=== PATIENT | male | born 1945 | race Caucasian/White ===

== ENCOUNTER 2023-07-19 07:25 | Day surgery (SDC) | payer MEDICARE, OTHER, SELFPAY ==
[2023-07-19] VITALS (15 sets, daily range): BP systolic 107–121; BP diastolic 66–74; BMI 24.2
[2023-07-19] MEDS: NSS 250 ML IV (08:42)
[2023-07-19 09:41] LABS: ACT-LR - POC 247 Seconds (116-155)
[2023-07-19] MEDS: NSS 1000 IV (09:55)
--- NOTE | 2023-07-19 12:38 | ITS.CL.CATH ---
[facility] - Catheterization
Cardiac Catheterization
Procedure Report:
CARDIAC CATHETERIZATION REPORT
Date of Procedure: 07/19/2023
Referring: Emir Campoverde MD
Indication: Worsening exertional dyspnea with known mild CAD
HEMODYNAMIC DATA
AO: 106/65
LV: 106/17
LEFT VENTRICULOGRAPHY: Normal left ventricular wall motion with EF 64%
CORONARY ANGIOGRAPHY
Dominance: Right
Left Main: Normal
LAD: There is mild to moderate calcification of the proximal and mid LAD. There is a 20% mid LAD lesion distal to the takeoff of the second diagonal branch. There is a smooth 50% stenosis in the proximal segment of the distal LAD and 80% true
apical stenosis. The appearance of the LAD is unchanged compared with the prior study from May 2021
Circumflex: The circumflex has 50-60% mid stenosis proximal to the takeoff of the medium sized OM 2. OM1 is small. The circumflex terminates with a small OM 3.
RCA: Large dominant vessel with mild luminal irregularities
FloWire assessment: At the conclusion of the diagnostic study, we proceeded with FloWire assessment of the mid circumflex lesion. The lesion appeared angiographically similar to its appearance on the 2020 study. However, given his symptoms we felt
we should rule out flow-limiting disease. A Vivoxid flow wire was used through a JL 4 guide catheter. Heparin is used for anticoagulation. iFR results were: 0.95, 0.96, and 0.96. These are consistent with nonflow-limiting disease.
Closure Device: None-the procedure was performed via the right radial artery. The Jelani's test was normal prior to the procedure.
Radiation (mGy): 293
DAP (cm2.Gy): 26.6
Fluoroscopy time: 3.1 minutes
CONCLUSIONS
1: Normal left ventricular wall motion with EF 64%
2: Stable CAD not significantly changed compared with the prior study from 05/28/2021. The mid circumflex lesion is nonflow limiting by FloWire assessment
3. Continue medical therapy
Copy to: Emir Campoverde MD, Bill Payne MD, Elier Chaidez MD ([facility] [address] pulmonary department)
Reg Hernandez MD, [facility], [facility]
== END 2023-07-19 14:00 | disposition home or self-care (01) ==
LOC: CATH 07:25
PROVIDERS: ATTENDING PHYSICIAN Internal Medicine Cardiovascular Disease; FAMILY PHYSICIAN Family Medicine; OTHER PHYSICIAN Internal Medicine
DX: I25.10 Atherosclerotic heart disease of native coronary artery without angina pectoris (principal); R06.09 Other forms of dyspnea; I25.84 Coronary atherosclerosis due to calcified coronary lesion; Z79.01 Long term (current) use of anticoagulants
CPT/HCPCS: 85347; 93458; 93571; C1769; C1894

== ENCOUNTER → 2023-09-21 12:44 | Outpatient (REF) | payer MEDICARE, OTHER, SELFPAY | LOC: DHCBC MAIN 12:44 | PROVIDERS: ATTENDING PHYSICIAN Internal Medicine; FAMILY PHYSICIAN Family Medicine | DX: I47.29 Other ventricular tachycardia (principal) | CPT/HCPCS: 93306 ==

== ENCOUNTER → 2023-11-04 11:00 | Outpatient (REF) | payer MEDICARE, OTHER, SELFPAY | LOC: RAD 11:00 | PROVIDERS: ATTENDING PHYSICIAN Internal Medicine; FAMILY PHYSICIAN Family Medicine | DX: R91.8 Other nonspecific abnormal finding of lung field (principal) | CPT/HCPCS: 71250 ==

== ENCOUNTER → 2024-01-20 11:59 | Outpatient (REF) | payer MEDICARE, OTHER, SELFPAY ==
[2024-01-20 12:58] LABS: % Basophils 1.7 % (0-2); % Eosinophils 2.9 % (0-6); % Immature Granulocytes 0.5 % (0-0.5); % Lymphocytes 15.5 % (20.5-51.1); % Monocytes 15.5 % (1.7-9.3); % Neutrophils 63.9 % (42.2-75.2); Absolute Basophils 0.1 10^3/uL (0-0.2); Absolute Eosinophils 0.1 10^3/uL (0-0.7); Absolute Lymphocytes 0.6 10^3/uL (1.2-3.4); Absolute Monocytes 0.6 10^3/uL (0.1-0.6); Absolute Neutrophils 2.7 10^3/uL (1.4-6.5); Hematocrit 32.4 % (39.0-52.0); Hemoglobin 10.8 g/dL (13.0-18.0); Mean Corp Hgb Conc. 33.3 g/dL (33.0-37.0); Mean Corpuscular Hgb 28.4 pg (27.0-31.0); Mean Corpuscular Volume 85.3 fL (80.0-94.0); Mean Platelet Volume 10.1 fL (7.4-10.4); Nucleated Red Blood Cells % 0 % (-); Platelet Count 142 10^3/uL (130-400); Red Cell Dist. Width 16.6 % (11.5-14.5); White Blood Cell Count 4.1 10^3/uL (4.8-10.8)
[2024-01-20 13:33] LABS: Iron 109 ug/dl (49-181)
[2024-01-20 13:44] LABS: Percent Saturation 37 % (20-50); Total Iron Binding Capacity 293 ug/dl (261-462)
[2024-01-20 14:09] LABS: Ferritin 39.6 ng/ml (17.9-464.0)
[2024-01-20 14:40] LABS: Folate > 20.0 ng/ml (2.76-20); Vitamin B12 813 pg/ml (239-931)
== END ==
LOC: REG 11:59
PROVIDERS: ATTENDING PHYSICIAN Internal Medicine Hematology & Oncology; FAMILY PHYSICIAN Family Medicine
DX: D61.818 Other pancytopenia (principal); K21.9 Gastro-esophageal reflux disease without esophagitis; I48.91 Unspecified atrial fibrillation; D51.9 Vitamin B12 deficiency anemia, unspecified; D51.8 Other vitamin B12 deficiency anemias
CPT/HCPCS: 36415; 82607; 82728; 82746; 83540; 83550; 85025

== ENCOUNTER → 2024-02-22 15:11 | Outpatient (REF) | payer MEDICARE, OTHER, SELFPAY | LOC: RAD 15:11 | PROVIDERS: ATTENDING PHYSICIAN Internal Medicine; FAMILY PHYSICIAN Family Medicine | DX: J47.9 Bronchiectasis, uncomplicated (principal) | CPT/HCPCS: 71250 ==

== ENCOUNTER → 2024-04-06 12:08 | Outpatient (REF) | payer MEDICARE, OTHER, SELFPAY ==
[2024-04-06 20:17] LABS: PSA, Total - Screen 0.12 ng/ml (0.0-4.0)
== END ==
LOC: REG 12:08
PROVIDERS: ATTENDING PHYSICIAN Family Medicine
DX: R39.198 Other difficulties with micturition (principal); Z12.5 Encounter for screening for malignant neoplasm of prostate
CPT/HCPCS: 36415; G0103

== ENCOUNTER → 2024-07-24 14:08 | Outpatient (REF) | payer MEDICARE, OTHER, SELFPAY ==
[2024-07-24 16:52] LABS: Iron 123 ug/dl (49-181)
[2024-07-24 17:01] LABS: Percent Saturation 39 % (20-50); Total Iron Binding Capacity 312 ug/dl (261-462)
[2024-07-24 17:48] LABS: % Basophils 1.7 % (0-2); % Eosinophils 6.2 % (0-6); % Immature Granulocytes 0.3 % (0-0.5); % Lymphocytes 19.2 % (20.5-51.1); % Monocytes 16.1 % (1.7-9.3); % Neutrophils 56.5 % (42.2-75.2); Absolute Basophils 0.1 10^3/uL (0-0.2); Absolute Eosinophils 0.2 10^3/uL (0-0.7); Absolute Lymphocytes 0.7 10^3/uL (1.2-3.4); Absolute Monocytes 0.6 10^3/uL (0.1-0.6); Hematocrit 32.9 % (39.0-52.0); Hemoglobin 10.3 g/dL (13.0-18.0); Mean Corp Hgb Conc. 31.3 g/dL (33.0-37.0); Mean Corpuscular Hgb 27.5 pg (27.0-31.0); Mean Corpuscular Volume 87.7 fL (80.0-94.0); Nucleated Red Blood Cells % 0 % (-); Platelet Count 119 10^3/uL (130-400); Red Blood Cell Count 3.75 10^6/uL (4.70-6.10); Red Cell Dist. Width 16.1 % (11.5-14.5); White Blood Cell Count 3.5 10^3/uL (4.8-10.8)
[2024-07-24 17:59] LABS: Folate > 20.0 ng/ml (2.76-20); Vitamin B12 881 pg/ml (239-931)
== END ==
LOC: REG 14:08
PROVIDERS: ATTENDING PHYSICIAN Internal Medicine Hematology & Oncology; FAMILY PHYSICIAN Family Medicine
DX: D61.818 Other pancytopenia (principal); I50.30 Unspecified diastolic (congestive) heart failure; D51.9 Vitamin B12 deficiency anemia, unspecified; I48.91 Unspecified atrial fibrillation
CPT/HCPCS: 36415; 82607; 82728; 82746; 83540; 83550; 85025

== ENCOUNTER → 2024-09-25 12:50 | Outpatient (REF) | payer MEDICARE, OTHER, SELFPAY | LOC: RAD 12:50 | PROVIDERS: ATTENDING PHYSICIAN Family Medicine | DX: T14.8XXA Other injury of unspecified body region, initial encounter (principal); R60.0 Localized edema | CPT/HCPCS: 93971 ==

== ENCOUNTER 2025-01-01 19:56 | Inpatient (IN) | payer MEDICARE, OTHER, SELFPAY ==
[2025-01-01] VITALS (26 sets, daily range): BP systolic 92–124; BP diastolic 60–90; BMI 24.4; BMI 24.9
[2025-01-01 16:55] LABS: Hematocrit 32.1 % (39.0-52.0); Hemoglobin 10.7 g/dL (13.0-18.0); Mean Corp Hgb Conc. 33.3 g/dL (33.0-37.0); Mean Corpuscular Volume 83.2 fL (80.0-94.0); Nucleated Red Blood Cells % 0 % (-); Platelet Count 124 10^3/uL (130-400); Red Cell Dist. Width 15.9 % (11.5-14.5)
[2025-01-01 17:13] LABS: ALT (SGPT) 19 U/L (0-50); AST (SGOT) 31 U/L (17-59); Albumin 4.5 g/dl (3.5-5.0); Alkaline Phosphatase 93 U/L (38-126); Blood Urea Nitrogen 25 mg/dl (9-20); Calcium 9.3 mg/dl (8.4-10.2); Carbon Dioxide 26 mmol/L (22-30); Chloride 105 mmol/L (98-107); Glucose 96 mg/dl (70-99); Potassium 4.2 mmol/L (3.5-5.1); Sodium 138 mmol/L (135-145); Total Protein 7.4 g/dl (6.3-8.2); eGFR > 60.00
[2025-01-01 17:24] LABS: Troponin I < 0.012 ng/ml
--- NOTE | 2025-01-01 17:34 | ED.GENMED ---
History of Present Illness
General
Chief Complaint: Breathing Problem
Source: patient
Exam Limitations: none
Time Seen by Provider: 01/01/25 17:34
History of Present Illness
History of Present Illness:
79-year-old male presents with shortness of breath and irregular fast heart rate that started yesterday. No chest pain no fever chills cough or other complaints.
Past History
Past History
ED Past Medical History: Arrthythmia, HTN and Hypercholesterolemia
ED Past Surgical History: Orthopedic
Social History
Tobacco: Non-smoker
Personal: (we'll that sound)
Living: with family
Employment: Retired
Family History
Family History: Other (Noncontributory)
Review of Systems
Review of Systems
All Other Systems: Not applicable
Constitutional: Denies fever
Respiratory: Denies hemoptysis
Cardiac: Denies chest pain
ABD/GI: Reports no symptoms
Phy Exam
Physical Exam
Physical Exam:
GENERAL: Alert and oriented in no apparent distress
EYE: Orbits normal.
NECK: Supple, no thyroid palpable
ENT: Pharynx without erythema
CARDIAC: Regular and very tachycardic
LUNGS: A few crackles in the bases
ABDOMEN: Soft, without focal tenderness or distention
NEUROLOGICAL: Alert and oriented , grossly non-focal
SKIN: Warm and dry, no rash or lesion, no discoloration, skin intact.
MUSCULOSKELETAL: No edema,no deformity.Good color
PSYCH: Normal and appropriate interaction.
Scores
Heart Failure Risk
Heart Failure Risk Score: Yes
History of Stroke or TIA: No
History of intubation for respiratory distress: No
Heart rate on ED arrival >/= 110: Yes
SaO2 <90% on arrival on room air: No
HR >/=110 during 3min walk test (or too ill to perform test): Yes
ECG has acute ischemic changes: No
Urea >/=12mmol/L (BUN 33.6mg/dL): No
Serum CO2>/=35mmol/L: No
Troponin I or T elevated to [place] Level (0.4mg/dL): No
NT-proBNP >/=5,000ng/L (5,000pg/ml): No
HF Risk Score: 2
Admission Status: MEDIUM RISK 9.2% Consider observation or discharge to home with homecare & f/u visit to PCP/[facility], or SNF for treatment
Course
Orders/Labs/Results
Orders:
Orders
01/01/25 Breakfast
Regular
At Your Request: Full Participation
Does patient need a safe tray?: No
01/01/25 16:28
ECG [Electrocardiogram (*1)] Urgent
Reason for Study: Atrial Fibrillation
EKG- Treatment ONCE
01/01/25 16:40
CMP [Comprehensive Metabolic Panel] Urgent
Complete Blood Count/With Diff Urgent
Digoxin Urgent
Comment: ADDON
NT-proBNP Urgent
Comment: ADDON
Troponin I Urgent
01/01/25 18:02
Adenosine [Adenocard] 18 mg .ROUTE .STK-MED ONE
01/01/25 18:07
Diltiazem HCl [Cardizem] 25 mg .ROUTE .STK-MED ONE
01/01/25 18:08
Diltiazem HCl [Cardizem] 10 mg IV NOW STA
01/01/25 18:10
Add On- LAB Urgent
Tests Added?: digoxin level
CXR Port [CR Chest Portable - 1 View] Urgent
Comment:
Reason For Exam: sob
Reason Study Needs to be Portable: Patient Unstable
01/01/25 18:13
Electrocardiogram (*1) Urgent
Reason for Study: Atrial Fibrillation
EKG- Treatment ONCE
01/01/25 18:30
Diltiazem 125 mg/125 ml Nss [Cardizem] 125 mg in 125 ml IV PER PROTOCOL
Initial dose in mg/hr, then titrate:: 5
Titrate to keep:: Heart rate 80-100 bpm
Titrate by mg/hr:: 5 mg/hr
Frequency of titrations (minutes):: 15
Maximum dose in mg/hr:: 15
01/01/25 19:05
Furosemide [Lasix] 40 mg IV NOW STA
01/01/25 19:06
Add On- LAB Urgent
Tests Added?: probnp
01/01/25 19:42
Admit/Transfer Patient As Directed
Co-Sign Provider:
Level of Care: Inpatient admission
Assign to:: IVU
Physician / Group: Mike
Diagnosis: A-Fib, CHF
Reason for Hospitalization: A-Fib, CHF
Expected length of stay greater than two midnights?: Yes
ELOS- Estimated Length of Stay in days: 3
I certify the patient meets the requirements for IP care: Yes
PRN Pain Medication Management As Directed
May give lesser potent ordered pain med per pt: Yes
preference::
Protocol:: Medication orders for pain may be administered in a
manner that supports deferring to patient preference
when the pt is:
- Requesting an ordered lesser potent pain medication.
Least to most potent pain medications are defined
as: acetaminophen < NSAID < tramadol < opioids
(morphine, oxycodone, hydromorphone).
- Requesting a lesser dose of the same medication IF
ORDERED.
- Requesting a less intrusive route of administration
if both routes are prescribed by the provider (PO <
IV).
01/01/25 19:44
Code Status As Directed
Resuscitation Status: Full Code
01/01/25 20:58
Acetaminophen [Tylenol] 650 mg PO Q4HPRN PRN
01/01/25 20:58
CARDIOLOGY CONSULT Routine
Consulting Provider: [facility]
Was physician already notified: Yes
Reason for consult: A-Fib, CHF
Activity As Directed
Activity Level: Ambulate
With Assistance
Bladder Scan As Directed
Follow Bladder Retention/Intermittent Cath Algorithm?: Yes
PRN if no void in __ hours: 6
Frequency: Per Retention Algorithm
If Bladder Scan Result >: 400
then:: Straight cath
EKG with chest pain [ECG as needed] As Directed
ECG as needed for:: Chest Pain
I/O [Intake/ Output] As Directed
Frequency: Per unit guidelines
Straight Cath As Directed
Frequency: Per Retention Algorithm
Additional Instructions: straight cath as needed per acute urinary retention algorithm for 24 hrs
Additional Instructions: for bladder scan greater than 400 mL
Vital Signs As Directed
Frequency: Per unit guidelines
Weight As Directed
Frequency: Daily
Oxygen Therapy [O2 Therapy] [RESP] Routine
Titrate/Wean O2 to maintain O2 sat greater than (%): 94
01/01/25 21:25
TSH Reflex To Free T4 Routine
Troponin I Q6H
01/01/25 22:00
Tamsulosin [Flomax] 0.4 mg PO HS
01/02/25 03:29
Basic Metabolic Panel IN AM
Cardiovascular Evaluation IN AM
Complete Blood Count/No Diff IN AM
Troponin I Q6H
01/02/25 06:00
EKG [Electrocardiogram (*1)] IN AM
Reason for Study: Chest Pain
01/02/25 08:00
Atorvastatin [Lipitor] 20 mg PO DAILY
Furosemide [Lasix] 40 mg IV DAILY
Rivaroxaban [Xarelto] 20 mg PO DAILY
01/02/25 12:00
Digoxin [Lanoxin] 250 mcg PO NOON
01/02/25 18:00
Duloxetine Delayed Release [Cymbalta Delayed Release] 60 mg PO QPM
Abnormal Lab Results
01/01/25
16:40
RBC 3.86 L 10^6/uL
(4.70-6.10)
Hgb 10.7 L g/dL
(13.0-18.0)
Hct 32.1 L %
(39.0-52.0)
RDW 15.9 H %
(11.5-14.5)
Plt Count 124 L 10^3/uL
(130-400)
Absolute Lymphs (auto) 0.8 L 10^3/uL
(1.2-3.4)
Absolute Monos (auto) 0.8 H 10^3/uL
(0.1-0.6)
Immature Gran % 0.6 H %
(0-0.5)
Lymphocytes % 15.5 L %
(20.5-51.1)
Monocytes % 14.7 H %
(1.7-9.3)
BUN 25 H mg/dl
(9-20)
Total Bilirubin 1.4 H mg/dl
(0.2-1.3)
Digoxin < 0.4 L ng/ml
(0.8-2.0)
01/01/25 16:40
01/01/25 16:40
Vital Signs
Initial and Last Documented VS:
Initial Vital Signs
Temp Pulse Resp BP Pulse Ox
98.2 F 144 20 124/90 99
01/01/25 16:26 01/01/25 16:26 01/01/25 16:26 01/01/25 16:26 01/01/25 16:26
Last Documented Vital Signs
Temp Pulse Resp BP Pulse Ox
97.5 F 87 18 103/77 100
01/02/25 11:23 01/02/25 12:00 01/02/25 11:23 01/02/25 11:33 01/02/25 11:25
MDM/Problems Addressed
Differential Diagnosis Includes:
My initial thought this might be an SVT or a flutter 2-1. In the initial plan was possibly adenosine or cardioversion. However after reviewing his previous records he apparently is in chronic permanent atrial fibrillation. This would make
cardioversion very unlikely and would make an SVT unlikely. Elected to give him Cardizem which brought his rate down into the 120s and more defined a irregular irregular rhythm. Warrants admission for rate control and further care. These were all
reviewed with cardiology
*Radiology
Radiology exam reviewed: preliminary read by ED provider (Negative)
*Pulse Oximetry
SaO2: 99
Oxygen Mode of Delivery: Room air
Patient hypoxic: no
*EKG
Interpreted by ED Provider?: Yes
Interpretation: abnormal
Comparison EKG: changes noted
Heart Rate: 143
Rate: tachycardiac
Rhythm: SVT
[place]: left axis deviation
Interval: normal interval
QRS Pattern: normal QRS
Ischemia: non-specific ST changes
*Rock Crushing Machine Operator Interpretation
Rate: tachycardiac
Interpretation: abnormal
Heart Rate: 125
Rhythm: a-fib
*Critical Care Note
Total Time (30-74mins, 75-104mins- exclusive of procedures): 45
Data Reviewed
Review of Other/Old Records Reveals: Labs, Records, Radiology Studies and Testing
Update Note
Update Note:
Repeat EKG atrial fibrillation. Improved rate. Pulse ox good. Lungs clear. Do not feel he is clinically in CHF. Chronic atrial fibrillation but now A-fib RVR and likely was in flutter earlier. Will rate control admit. Cardiology has been
involved
Multiple rechecks. Still remains in somewhat A-fib RVR. May have a slight component of failure. Blood pressure borderline. Will give a dose of Lasix. Watch blood pressure closely
ED Attending Note
-
Portions of this chart may have been created with voice recognition software.� Occasional wrong word or��sound alike� substitutions may have occurred due to the inherent limitations of voice recognition software.
Discharge Plan
Departure
Patient Disposition: Admit
Date of Disposition: 01/01/25
Time of Disposition: 19:04
Presentation/result/management discussed w/ accepting MD/DO: Cardiology
Discharge Problem:
Atrial fibrillation/RVR, Dyspnea
Interventions
Interventions:
*Risk Screen - Suicide Last Done: 01/01/25 16:26
*Neglect/Abuse Screening Last Done: 01/01/25 16:26
*ED COVID-19 Vaccine History Last Done: 01/01/25 17:52
*Nursing Disposition Last Done: 01/01/25 21:05
ED- Cardiac Assessment Last Done: 01/01/25 17:52
ED- Pulmonary Assessment Last Done: 01/01/25 17:52
Discharge Date and Time
Discharge Date/Time: 01/01/25 21:05
[2025-01-01] MEDS: CARDIZEM 10 MG IV (18:09)
[2025-01-01] MEDS: CARDIZEM 125 IV (18:23)
[2025-01-01 19:15] LABS: Digoxin < 0.4 ng/ml (0.8-2.0)
--- NOTE | 2025-01-01 19:46 | HPS.HSE ---
Family Physician
-
Family Physician: Bill Payne
Chief Complaint
-
SOB, lightheadedness
History of Present Illness
Patient is an 79y M with PMH significant for permanent A-Fib, CHF and ASCVD who presents to ED complaining of SOB and lightheadedness. Patient states that his symptoms started yesterday following a 1 hour car ride. He exited the vehicle and
felt lightheaded and short of breath. His weight was up slightly yesterday (183 lbs) so he took an afternoon dose of Lasix (which he usually does not do). Today he was walking around the grocery store when he noted that he felt SOB. His symptoms
improved with rest and recurred with exertion. He had no palpitations, chest pain or chest pressure.
Checking his pulse - he noted that his heart rate was 140 - 160.
Patient states that it is not unusual for him to have resting heart rates > 100 bpm on his current rate control regimen.
He denies any other current complaints or concerns.
Patient was started on Cardizem here in the ED with improvement in HR from 160s to 110s / 120s. He feels clinically improved and is in no distress at present.
Medical History
Past Medical History
Past Medical History: Reports Other
Additional Past Medical History:
Permanent Atrial Fibrillation
Non-Obstructive CAD
HFpEF
Nephrolithiasis
GERD
BPH
Anxiety / Depression
Past Surgical History: Reports Other
Additional Past Surgical History:
R Rotator Cuff Surgery
DCCV x 2
Ablation
Knee Arthroscopy
Social History
Tobacco: Former Smoker (Quit smoking 40 years ago.)
Alcohol: Occasional
Drug: None
Personal:
Living: With Family
Family History
Family History: Not pertinent
Allergies / Home Medications
Allergies reflects when Allergies were last updated in [employer].
Home Medications with original date entered in [employer]
Allergy/Medication List:
Allergies
Allergy/AdvReac Type Severity Reaction Status Date / Time
adhesive tape Allergy Rash Verified 01/01/25 16:26
dofetilide (From Tikosyn) Allergy abnormal Verified 01/01/25 16:26
ekg
seasonal Allergy sneezing,runny Uncoded 01/01/25 16:26
nose,itching
& watery
eyes
Home Medications
rivaroxaban 20 mg tablet (Xarelto) 20 mg PO DAILY 07/02/19
atorvastatin 20 mg tablet 20 mg PO DAILY 05/27/21
diltiazem HCl 120 mg capsule,extended release 24 hr 120 mg PO DAILY ##90 05/28/21
tamsulosin 0.4 mg capsule 0.4 mg PO HS 10/09/21
biotin 1,000 mcg chewable tablet 1,000 mcg PO DAILY 07/19/23
urnllouy-ew-finzy 300 mcg-K 60 mcg-lycop 600 mcg-lutein 300 mcg tablet (Centrum Silver Men) 1 tab PO DAILY 07/19/23
albuterol sulfate 2.5 mg/3 mL (0.083 %) solution for nebulization 2.5 mg inhalation R Q4HPRN PRN sob 01/01/25
collagen 1 tab PO TID 01/01/25
diclofenac sodium 3 % topical gel 1 applic topical BIDPRN PRN R hand & R knee 01/01/25
digoxin 250 mcg (0.25 mg) tablet 250 mcg PO DAILY 01/01/25
duloxetine 60 mg capsule,delayed release 60 mg PO QPM 01/01/25
furosemide 40 mg tablet 40 mg PO BID 01/01/25
naproxen sodium 220 mg tablet (Aleve) 220 mg PO BIDPRN PRN mild pain 01/01/25
triamcinolone acetonide 0.1 % topical cream 1 applic topical BID apply to B/L legs eczema 01/01/25
Review of Systems
-
History Source: Patient
A 12 point ROS was completed and negative except as noted: Yes
Constitutional: Reports Fatigue; Denies Fever or Chills
Respiratory: Reports Trouble Breathing; Denies Cough
Cardiac: Denies Chest Pain, Palpitations or Syncope
Abdomen/GI: Denies Abdominal Pain, Nausea or Vomiting
: Denies Dysuria or Frequency
Musculoskeletal: Denies Joint Pain or Edema
Neurological: Reports Dizzy; Denies Headache
Physical Exam
Vital Signs
Vital Signs
Temp Pulse Resp BP Pulse Ox
98.2 F 113 19 94/69 99
01/01/25 16:26 01/01/25 19:30 01/01/25 19:30 01/01/25 19:30 01/01/25 19:30
Physical Exam
General: Other (79y M in no acute distress.)
HEENT: Moist mucous membranes, PERRLA and Other (Pos HJR)
Respiratory: Clear; No Wheezes, Rales or Rhonchi
Cardiac: S1/S2, Irregular Rhythm and Tachycardia; No Murmur
GI: Soft, Non Tender, Non Distended and Normal Bowel Sounds
Musculoskeletal: No Clubbing, No Cyanosis and Other (Varicose veins. No significant edema.)
Neuro: AO x 3
Laboratory Results
-
01/01/25 16:40
01/01/25 16:40
Laboratory Results
Total Bilirubin 1.4 mg/dl (0.2-1.3) H 01/01/25 16:40
AST 31 U/L (17-59) 01/01/25 16:40
ALT 19 U/L (0-50) 01/01/25 16:40
Alkaline Phosphatase 93 U/L (38-126) 01/01/25 16:40
Troponin I < 0.012 ng/ml 01/01/25 16:40
Impression/Plan
-
A/P: Patient is an 79y M with PMH significant for A-Fib, CHF and BPH who presents to ED complaining of SOB with activity and lightheadedness for the past 2 days.
Permanent Atrial Fibrillation with Rapid Ventricular Response
- Admit to IVU for further evaluation and treatment.
- Patient 'runs high' with baseline resting heart rates usually over 100 according to him.
- Has failed attempts to maintain sinus rhythm in the past. Intolerant of beta-blockers.
- Continue IV diltiazem gtt. Titrate for HR close to 100 - happy with less aggressive rate control.
- Continues usual digoxin dosing.
- Continue Xarelto for stroke risk reduction.
- Cardiology evaluation in the AM for additional recommendations.
Acute on Chronic HFpEF
- Pos HJR, dyspnea on exertion and mild edema on CXR.
- Suspect this is mostly rate-mediated.
- Patient notes that he takes Lasix daily - BID if his weight is increased (which it was yesterday).
- BP borderline at present which limits rate control attempts.
- IV Lasix daily for now.
- Follow I/Os, daily weights, etc.
- Update Echo (last one year ago with EF = 60-65%).
ASCVD
- Non-obstructive CAD on prior cath. No stents.
BPH
- Stable. Continue tamsulosin.
- Bladder scan protocol.
Anxiety / Depression
- Stable. Continue duloxetine.
DVT Prophylaxis: On Xarelto.
Code Status: Full
[2025-01-01] MEDS: FLOMAX 0.4 MG PO (21:30)
--- NOTE | 2025-01-01 21:44 | PTCARENOTE ---
Received patient from ED. Afib on the monitor, HR in the 110s, asymptomatic. VSS on room air. Pt alert and oriented, no chest pain at this time. Cardizem running as per protocol, see documentation. Oriented pt to room and plan of care, pt verbalized
understanding. No complaints from pt at this time, call bonilla within reach.
[2025-01-01 22:06] LABS: Troponin I < 0.012 ng/ml
[2025-01-02 03:22] VITALS: BP 97/75
[2025-01-02 03:43] LABS: Hematocrit 28.7 % (39.0-52.0); Hemoglobin 9.6 g/dL (13.0-18.0); Mean Corp Hgb Conc. 33.4 g/dL (33.0-37.0); Mean Corpuscular Volume 82.2 fL (80.0-94.0); Platelet Count 106 10^3/uL (130-400); Red Cell Dist. Width 15.7 % (11.5-14.5)
[2025-01-02 04:04] LABS: Blood Urea Nitrogen 26 mg/dl (9-20); Calcium 9.1 mg/dl (8.4-10.2); Carbon Dioxide 24 mmol/L (22-30); Chloride 106 mmol/L (98-107); Estimated Creatinine Clearance 58 ml/min; Glucose 89 mg/dl (70-99); HDL Cholesterol 43 mg/dl; LDL Cholesterol, Calculated 55 mg/dl; Potassium 3.8 mmol/L (3.5-5.1); Sodium 135 mmol/L (135-145); Very Low Density Lipoprotein 11 mg/dl (0-30); eGFR > 60.00
[2025-01-02 04:16] LABS: Troponin I < 0.012 ng/ml
[2025-01-02 06:00] VITALS: BMI 24.7
[2025-01-02 07:59] VITALS: BP 103/72
[2025-01-02] MEDS: LASIX 40 MG IV (08:37)
[2025-01-02] MEDS: LIPITOR 20 MG PO (08:37)
[2025-01-02] MEDS: FLUSH (NSS) 2 FLUSH IV (08:37)
[2025-01-02] MEDS: XARELTO 20 MG PO (08:38)
--- NOTE | 2025-01-02 09:05 | CON.CAR ---
Addendum entered and electronically signed by Kilo Savage MD 01/02/25 17:35:
I saw and examined the patient.
The CARBIDE TOOL DIE MAKER's note was reviewed and I agree with the note.
Comment: Increase dilt, monitor tele IV lasix x1
Echo consider amyloid as diagnosis
Original Note:
Consultation
Consultation Request
Date/Time Consultation Requested: 01/01/252057
Date/Time Consultation Performed: 01/02/25844
Requesting Provider: Dr. Mckeon
Performing Provider: [facility] ABERNATHY for Dr. Savage
Reason for Consultation: CHF, AFIB
Medical History
-
Chief Complaint: SOB, dizzy
History of Present Illness:
79 y/o (patient of Dr. Campoverde) with permanent AFIB on Xarelto (previous CVs and ablations, not able to be on Tikosyn due to QTC), moderate non-obstructive CAD, HFpEF, right sided HF, mild ascending aorta dilation 4.2 cm, chronic
emphysema/bronchiectasis (pulm at [facility]), anemia/pancytopenia (heme/onc), BPH, and NSVT who is here for evaluation of SOB and dizziness with exertion since Tuesday. He did note a 5 lb weight gain, so took an extra dose of lasix. He did have some LE
edema, but it is better now. On arrival to ER, he was seen to be in SVT likely atrial flutter 140's. He was placed on a diltiazem drip and is in rate-controlled AFIB and in no distress at the time of my assessment.
Past Medical History
Past Medical History: Arrhythmias, CAD, CHF, COPD and Other (as above)
Social History
Tobacco: Former Smoker
Family History
Family History: Reviewed & Not Pertinent
Allergies / Home Medications
Allergy/AdvReac Type Severity Reaction Status Date / Time
adhesive tape Allergy Rash Verified 01/01/25 16:26
dofetilide (From Tikosyn) Allergy abnormal Verified 01/01/25 16:26
ekg
seasonal Allergy sneezing,runny Uncoded 01/01/25 16:26
nose,itching
& watery
eyes
�Medication �Instructions �Recorded �Confirmed �Type
rivaroxaban 20 mg tablet (Xarelto) 20 mg PO DAILY 07/02/19 01/01/25 History
atorvastatin 20 mg tablet 20 mg PO DAILY 05/27/21 01/01/25 History
diltiazem HCl 120 mg 120 mg PO DAILY ##90 05/28/21 01/01/25 Rx
capsule,extended release 24 hr
tamsulosin 0.4 mg capsule 0.4 mg PO HS 10/09/21 01/01/25 History
biotin 1,000 mcg chewable tablet 1,000 mcg PO DAILY 07/19/23 01/01/25 History
raywvnsd-bt-vagks 300 mcg-K 60 1 tab PO DAILY 07/19/23 01/01/25 History
mcg-lycop 600 mcg-lutein 300 mcg
tablet (Centrum Silver Men)
albuterol sulfate 2.5 mg/3 mL 2.5 mg inhalation R Q4HPRN PRN sob 01/01/25 01/01/25 History
(0.083 %) solution for nebulization
collagen 1 tab PO TID 01/01/25 01/01/25 History
diclofenac sodium 3 % topical gel 1 applic topical BIDPRN PRN R hand 01/01/25 01/01/25 History
& R knee
digoxin 250 mcg (0.25 mg) tablet 250 mcg PO DAILY 01/01/25 01/01/25 History
duloxetine 60 mg capsule,delayed 60 mg PO QPM 01/01/25 01/01/25 History
release
furosemide 40 mg tablet 40 mg PO BID 01/01/25 01/01/25 History
naproxen sodium 220 mg tablet 220 mg PO BIDPRN PRN mild pain 01/01/25 01/01/25 History
(Aleve)
triamcinolone acetonide 0.1 % 1 applic topical BID apply to B/L 01/01/25 01/01/25 History
topical cream legs eczema
Review of Systems
-
History Source: Patient
All other systems: Negative unless noted
Constitutional: Weight Gain
Respiratory: Trouble Breathing
Musculoskeletal: Edema
Neurological: Dizzy
Physical Exam
Vital Signs
Temp Pulse Resp BP Pulse Ox
97.8 F 92 18 103/72 97
01/02/25 08:00 01/02/25 08:00 01/02/25 08:00 01/02/25 07:59 01/02/25 08:00
Lab Results
01/02/25 03:29
01/02/25 03:29
Troponin I Cancelled 01/02/25 08:58
Jce-O-Xjvinrutnjh Pept 2800 pg/ml 01/01/25 16:40
Physical Exam
General: Well Developed, Well Nourished and No Apparent Distress
HEENT: Normocephalic and Anicteric
Respiratory: Crackles (mild right base)
Cardiac: Irregular Rhythm
Musculoskeletal: Edema (trace BLE edema)
Skin: Warm and Dry
Neuro: AO x 3
Psych: Calm
Impression / Plan
-
[id number] HFpEF: mild exacerbation in setting of tachyarrhythmia
-BNP elevated and CXR suggestive excess volume
-update echo
-agree with IV lasix, which requires intensive monitoring
-of note, as OP, he tells me he normally only takes lasix 40 mg once daily with second dose if needed for volume retention -
AFIB, permanent:
-however, when he came in, he was in an SVT (likely atrial flutter), with rates in 140's. Now in rate-controlled AFIB on IV diltiazem. Stop diltiazem drip and resume diltiazem, but at higher dosing. Continue digoxin.
-continue Xarelto
Moderate, non-obstructive CAD:
-trops normal
-continue Xarelto and statin
Data Reviewed
-
EKG: Tracing Personally Visualized and interpreted (AFIB 122 BPM)
Radiology: Report Reviewed by me (CXR: Mild cardiomegaly with likely mild interstitial edema. Likely trace bilateral pleural effusions.)
Medical Tests (Nuc Med, Echo etc): Report Reviewed by me (09/21/23: Normal left ventricular systolic function. Estimated left ventricular ejection fraction is 60-65%. Moderate concentric left ventricular hypertrophy. Severely dilated atria. Mild
mitral regurgitation. Mild tricuspid regurgitation. Estimated PAP 54 mmHg. Ascending aorta dilatation-4.2cm)
Labs: Labs Reviewed by me
--- NOTE | 2025-01-02 09:50 | PTCARENOTE ---
Received patient this morning resting in bed. Remains in AF, controlled rate 80-90's at rest. IV cardizem infusing at 5mg/hr. Patient denies any chest pain or sob, sent for his echo now.
[2025-01-02 11:25] VITALS: BP 103/77
[2025-01-02] MEDS: CARDIZEM CD 240 MG PO (11:33)
--- NOTE | 2025-01-02 12:11 | W.PN.HOSP.TC ---
Today's Communication/Plan
-
po ccb
iv lasix
echo
cards recs
trend cr
Assessment / Plan
Assessment / Plan
A/P: Patient is an 79y M with PMH significant for A-Fib, CHF and BPH who presents to ED complaining of SOB with activity and lightheadedness for the past 2 days.
Permanent Atrial Fibrillation with Rapid Ventricular Response
- Patient 'runs high' with baseline resting heart rates usually over 100 according to him.
- Has failed attempts to maintain sinus rhythm in the past. Intolerant of beta-blockers.
- Status post IV Cardizem drip and now starting p.o. Cardizem 240mg CD
- Continues usual digoxin dosing.
- Continue Xarelto for stroke risk reduction.
- Cardiology evaluation
Acute on Chronic HFpEF
- Suspect this is mostly rate-mediated.
- Patient notes that he takes Lasix daily - BID if his weight is increased .
- BP borderline at present which limits rate control attempts.
- IV Lasix daily for now.
- Follow I/Os, daily weights, etc.
- Update Echo
ASCVD
- Non-obstructive CAD on prior cath. No stents.
BPH
- Stable. Continue tamsulosin.
- Bladder scan protocol.
Anxiety / Depression
- Stable. Continue duloxetine.
Normocytic anemia
Chronic Thrombocytopenia
-Continue to trend hemoglobin
-Check anemia panel
-trend platelets
DVT Prophylaxis: On Xarelto.
Code Status: Full
Anticipated Discharge: 24 - 48 hours
Subjective/Interval History
-
Date of Service: January 02, 2025
States breathing has improved significantly
Denies any palpitation
Objective Data
-
Labs:
Laboratory Results
01/02/25
03:29
WBC 3.7 L
Hgb 9.6 L
Hct 28.7 L
Plt Count 106 L
Sodium 135
Potassium 3.8
Chloride 106
Carbon Dioxide 24
BUN 26 H
Creatinine 1.1
Glucose 89
Calcium 9.1
Vital Signs:
Vital Signs
Temp Pulse Resp BP Pulse Ox
97.5 F 87 18 103/77 100
01/02/25 11:23 01/02/25 12:00 01/02/25 11:23 01/02/25 11:33 01/02/25 11:25
I&O
01/01/25 01/02/25 01/03/25
06:59 06:59 06:59
Intake Total 200 / 200 240 / 240
Output Total 925 / 925 650 / 650
Balance -725 / -725 -410 / -410
Physical Exam
-
General: Well Developed and No Apparent Distress
HEENT: Normocephalic, Atraumatic, Moist Mucous Membranes, No Ptosis, Nose Appears Normal and Ears Appear Normal
Respiratory: Clear to Auscultation
Cardiac: S1/S2; Negative Murmur, Rub or Gallop
GI: Soft, Nontender, Nondistended and Normal Bowel Sounds; Negative Organomegaly
Rectal: Deferred by Provider
Musculoskeletal: No Clubbing, No Cyanosis and No Edema
Skin: Negative Rash
Neuro: Awake, AO x 3, No Motor Deficits and Nonfocal/Grossly Intact
Psych: Calm
[2025-01-02] MEDS: LANOXIN 250 MCG PO (12:43)
[2025-01-02 14:19] LABS: Iron 88 ug/dl (49-181); Magnesium 2.1 mg/dl (1.6-2.3)
[2025-01-02 14:28] LABS: Total Iron Binding Capacity 302 ug/dl (261-462)
--- NOTE | 2025-01-02 14:29 | CM ---
CM following for DC planning needs.
Met w/ patient at bedside to complete initial assessment.
Pt. reports that he resides w/ spouse in a private, 2 STH. He is functionally indep. at baseline w/ ADLs, mobility without the use of any assisted device.
Pt. has RX plan and uses [facility] for prescription needs.
Antic. DC plan is for home without needs.
CM to cont. to follow.
[2025-01-02 14:43] LABS: Ferritin 36.6 ng/ml (17.9-464.0)
[2025-01-02 15:01] LABS: Vitamin B12 790 pg/ml (239-931)
[2025-01-02 15:32] VITALS: BP 116/86
[2025-01-02 16:38] LABS: Folate > 20.0 ng/ml (2.76-20)
[2025-01-02] MEDS: CYMBALTA DELAYED RELEASE 60 MG PO (17:22)
[2025-01-02 19:38] VITALS: BP 101/72
--- NOTE | 2025-01-02 20:31 | PTCARENOTE ---
Received patient at change of shift. Afib with occasional PVCs on the monitor, HR in the 80s, asymptomatic. No complaints from pt at this time, call bonilla within reach.
[2025-01-02] MEDS: FLOMAX 0.4 MG PO (21:43)
[2025-01-02 22:36] VITALS: BP 113/82
[2025-01-03 02:20] VITALS: BP 101/83
[2025-01-03 02:21] VITALS: BMI 24.7
[2025-01-03 02:59] LABS: Hematocrit 29.1 % (39.0-52.0); Hemoglobin 9.8 g/dL (13.0-18.0); Mean Corp Hgb Conc. 33.7 g/dL (33.0-37.0); Mean Corpuscular Volume 82.4 fL (80.0-94.0); Nucleated Red Blood Cells % 0 % (-); Platelet Count 105 10^3/uL (130-400); Red Cell Dist. Width 15.7 % (11.5-14.5)
[2025-01-03 03:19] LABS: Blood Urea Nitrogen 26 mg/dl (9-20); Calcium 8.8 mg/dl (8.4-10.2); Carbon Dioxide 25 mmol/L (22-30); Chloride 104 mmol/L (98-107); Estimated Creatinine Clearance 53 ml/min; Glucose 100 mg/dl (70-99); Magnesium 2.1 mg/dl (1.6-2.3); Potassium 3.7 mmol/L (3.5-5.1); Sodium 136 mmol/L (135-145); eGFR > 60.00
[2025-01-03 07:31] VITALS: BP 99/71
[2025-01-03] MEDS: XARELTO 20 MG PO (09:09)
[2025-01-03 09:10] VITALS: BP 100/72
[2025-01-03] MEDS: LASIX 40 MG IV (09:10)
[2025-01-03] MEDS: CARDIZEM CD 240 MG PO (09:10)
[2025-01-03] MEDS: LIPITOR 20 MG PO (09:10)
[2025-01-03] MEDS: FLUSH (NSS) 1 FLUSH IV (09:10)
--- NOTE | 2025-01-03 09:33 | PTCARENOTE ---
Patient resting comfortably this morning, controlled AF on the monitor, patient is hopeful to go home today.
--- NOTE | 2025-01-03 10:33 | W.PN.HOSP.TC ---
Today's Communication/Plan
-
Await cardiology recs
Continue with Cardizem and digoxin
Assessment / Plan
Assessment / Plan
A/P: Patient is an 79y M with PMH significant for A-Fib, CHF and BPH who presents to ED complaining of SOB with activity and lightheadedness for the past 2 days.
Permanent Atrial Fibrillation with Rapid Ventricular Response
- Patient 'runs high' with baseline resting heart rates usually over 100 according to him.
- Has failed attempts to maintain sinus rhythm in the past. Intolerant of beta-blockers.
- Status post IV Cardizem drip and now starting p.o. Cardizem 240mg CD. Heart rate well-controlled.
- Continues usual digoxin dosing.
- Continue Xarelto for stroke risk reduction.
- Cardiology evaluation
Acute on Chronic HFpEF
- Suspect this is mostly rate-mediated.
- Patient notes that he takes Lasix daily - BID if his weight is increased .
- BP borderline at present which limits rate control attempts.
- IV Lasix daily for now. Seems euvolemic can probably transition back to home measurement
- Follow I/Os, daily weights, etc.
- Echo with EF of 53%. Low normal systolic function. Moderate mitral regurgitation. Echocardiographic appearance could be consistent with amyloid cardiomyopathy.
- Update Echo
ASCVD
- Non-obstructive CAD on prior cath. No stents.
BPH
- Stable. Continue tamsulosin.
- Bladder scan protocol.
Anxiety / Depression
- Stable. Continue duloxetine.
Normocytic anemia
Chronic Thrombocytopenia
-Continue to trend hemoglobin
-trend platelets
DVT Prophylaxis: On Xarelto.
Code Status: Full
Anticipated Discharge: Today
Subjective/Interval History
-
Date of Service: January 03, 2025
Resting chest pain palpitation
Walking around without any difficulty
On room air
Objective Data
-
Labs:
Laboratory Results
01/03/25
02:26
WBC 4.3 L
Hgb 9.8 L
Hct 29.1 L
Plt Count 105 L
Sodium 136
Potassium 3.7
Chloride 104
Carbon Dioxide 25
BUN 26 H
Creatinine 1.2
Glucose 100 H
Calcium 8.8
Vital Signs:
Vital Signs
Temp Pulse Resp BP Pulse Ox
97.8 F 87 20 100/72 99
01/03/25 07:32 01/03/25 09:10 01/03/25 07:32 01/03/25 09:10 01/03/25 07:32
I&O
01/02/25 01/03/25 01/04/25
06:59 06:59 06:59
Intake Total 200 / 200 240 / 240
Output Total 925 / 925 1100 / 1100 450 / 450
Balance -725 / -725 -860 / -860 -450 / -450
Physical Exam
-
General: Well Developed and No Apparent Distress
HEENT: Normocephalic, Atraumatic, Moist Mucous Membranes, No Ptosis, Nose Appears Normal and Ears Appear Normal
Respiratory: Clear to Auscultation
Cardiac: S1/S2; Negative Murmur, Rub or Gallop
GI: Soft, Nontender, Nondistended and Normal Bowel Sounds; Negative Organomegaly
Rectal: Deferred by Provider
Musculoskeletal: No Clubbing, No Cyanosis and No Edema
Skin: Negative Rash
Neuro: Awake, AO x 3, No Motor Deficits and Nonfocal/Grossly Intact
Psych: Calm
[2025-01-03 11:20] VITALS: BP 101/69
[2025-01-03] MEDS: LANOXIN 250 MCG PO (12:07)
--- NOTE | 2025-01-03 12:52 | W.PN.CD ---
Today's Communication / Plan
-
discharge planning on increased diltiazem 240mg daily
to discuss amyloid nuclear scan as outpatient
please call us back with additional questions
Impression / Plan
-
[id number] HFpEF: mild exacerbation in setting of tachyarrhythmia, now improved
-as OP, he reports that he takes lasix 40 mg once daily with second dose if needed for volume retention: resume this regimen
-echo: appearance could be consistent with amyloid cardiomyopathy. EF 50-55%
-will plan to assess for amyloid PyP scan at outpatient follow up
AFIB, permanent:
-however, when he came in, he was in an SVT (likely atrial flutter), with rates in 140's. Now in rate-controlled AFIB on IV diltiazem. Stopped diltiazem drip and resumed PO diltiazem, but at higher dosing 240mg daily. Continue digoxin.
-continue Xarelto
Moderate, non-obstructive CAD:
-trops normal
-continue Xarelto and statin
Physical Exam
Vital Signs/Labs
Vital Signs
Temp Pulse Resp BP Pulse Ox
98.1 F 88 20 101/69 99
01/03/25 11:20 01/03/25 12:15 01/03/25 11:20 01/03/25 11:20 01/03/25 11:20
01/02/25 01/03/25 01/04/25
06:59 06:59 06:59
Actual Weight 82.5 kg 82.4 kg
01/03/25 02:26
01/03/25 02:26
Magnesium 2.1 mg/dl (1.6-2.3) 01/03/25 02:26
Triglycerides 57 mg/dl (10-149) 01/02/25 03:29
LDL Cholesterol, Calc 55 mg/dl 01/02/25 03:29
VLDL Cholesterol, Calc 11 mg/dl (0-30) 01/02/25 03:29
HDL Cholesterol 43 mg/dl 01/02/25 03:29
Digoxin < 0.4 ng/ml (0.8-2.0) L 01/01/25 16:40
01/01/25
16:40
Nor-P-Azcongiggsa Pept 2800
LAB Results
01/01/25 01/01/25 01/02/25
16:40 21:25 03:29
Troponin I < 0.012 < 0.012 < 0.012
01/02/25
08:58
Troponin I Cancelled
Physical Exam
Constitutional: No acute distress and Comfortable
EENT: Moist mucous membranes
Cardiovascular: Pedal edema is absent, JVD pressure is normal, Systolic murmur absent and Rhythm/rate is irregular
Respiratory: Respiratory effort normal and Lungs clear to auscul.
Neuro/Psych: AO x 3
Data Reviewed
-
Date of Service: January 03, 2025
EKG: Other (Tele: A fib avg 70s, brief NSVT)
Labs: Labs Reviewed by me
--- NOTE | 2025-01-03 13:19 | W.DCSUMMARY ---
Discharge Summary
Discharge Data
Date of Admission: 01/01/25
Date of Discharge: 01/03/25
-
Pending Results: No
Hospital Course
79y M with PMH significant for A-Fib, CHF and BPH who presents to ED complaining of SOB with activity and lightheadedness for the past 2 days. Patient was found to be in atrial fibrillation with rapid ventricular response on starting IV
Cardizem drip. Patient was also found to be in acute heart failure exacerbation. Patient was eval by cardiology. IV Cardizem was discontinued. P.o. Cardizem dose was increased to 240 mg daily FROM 120mg daily . Patient was diuresed IV Lasix.
Patient was symptomatically feeling a lot better. Patient underwent echocardiogram. 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 Patient was ambulating without difficulty. Plan will be to do further outpatient imaging by
cardiology-amyloid nuclear scan as outpatient. Patient can be discharged home. K.
Discharge Plan
-
Patient Disposition: Home (Routine Discharge)
Discharge Diagnosis/Procedures: Permanent Atrial Fibrillation with Rapid Ventricular Response
Acute on chronic diastolic heart failure exacerbation
Condition: Fair
Diet: 2 Gram Sodium and Restrict fluids to 48 oz
Activity: As tolerated
Driving Restrictions: As prior to admission
Referrals:
Isabella Barnett CRNP [[facility]ified Professional Person[facility], Cardiology] - 01/25/25 8:40 am
Bill Payne MD [Family Provider, Family Practice] - in less than 1 week
Prescriptions:
New
diltiazem HCl 240 mg Capsule,Extended Release 24hr
240 mg PO DAILY 30 Days Qty: 30 0RF
Continued
Xarelto 20 MG tablet
20 mg PO DAILY
atorvastatin 20 MG tablet
20 mg PO DAILY
tamsulosin 0.4 MG capsule
0.4 mg PO HS
Centrum Silver Men [id number] mcg Tablet
1 tab PO DAILY
biotin 1,000 mcg Tablet,Chewable
1,000 mcg PO DAILY
furosemide 40 mg Tablet
40 mg PO BID
diclofenac sodium 3 % gel
1 applic TOPICAL BIDPRN PRN (Reason: R hand & R knee)
albuterol sulfate 2.5 mg /3 mL (0.083 %) Solution For Nebulization
2.5 mg INHALATION R Q4HPRN PRN (Reason: sob)
digoxin 250 mcg (0.25 mg) tablet
250 mcg PO DAILY
triamcinolone acetonide 0.1 % Cream
1 applic TOPICAL BID
duloxetine 60 mg capsule,delayed release(DR/EC)
60 mg PO QPM
collagen
1 tab PO TID
Discontinued
diltiazem HCl 120 MG capsule,extended release 24hr
120 mg PO DAILY Qty: 90 5RF
naproxen sodium [Aleve] 220 mg Tablet
220 mg PO BIDPRN PRN (Reason: mild pain)
Discharge Orders:
Discharge Patient (As Directed); Ordered 01/03/25
Ordered By: Nadir Turner
Care Plan Goals
Care Plan Goals:
Problem: Readiness for enhanced knowledge related to diagnosis and treatment plan
Goal: Understand your diagnosis and treatment plan needs, including medications if applicable.
Instructions: Know your diagnosis, underlying causes and treatment plan options, including medications if applicable. Consult with your health care team to learn about your diagnosis and treatment plan, including medications if applicable.
Discharge Date and Time
Print Language: SWAZI
--- NOTE | 2025-01-03 13:56 | PTCARENOTE ---
Patient ordered for discharge, present to take him home. Order reads after PT. Patient has been independent and ambulating in the room without difficulty, patient declines PT, does not feel it is necessary. Notified Dr. Turner and he is ok to
be discharged, PT notified. Patient discharged home with his .
== END 2025-01-03 14:01 | disposition home or self-care (01) | DRG 291 ==
LOC: IVU 19:56
PROVIDERS: ADMITTING PHYSICIAN Hospitalist; ATTENDING PHYSICIAN Hospitalist; CONSULT PHYSICIAN Internal Medicine Cardiovascular Disease; EMERGENCY PHYSICIAN Emergency Medicine; FAMILY PHYSICIAN Family Medicine
DX: I11.0 Hypertensive heart disease with heart failure (principal); I50.33 Acute on chronic diastolic (congestive) heart failure; I48.21 Permanent atrial fibrillation; D61.818 Other pancytopenia; I47.20 Ventricular tachycardia, unspecified; I48.92 Unspecified atrial flutter; E78.00 Pure hypercholesterolemia, unspecified; I25.10 Atherosclerotic heart disease of native coronary artery without angina pectoris; D64.9 Anemia, unspecified; D69.6 Thrombocytopenia, unspecified; K21.9 Gastro-esophageal reflux disease without esophagitis; J43.9 Emphysema, unspecified; I77.810 Thoracic aortic ectasia; J47.9 Bronchiectasis, uncomplicated; I34.0 Nonrheumatic mitral (valve) insufficiency; J30.2 Other seasonal allergic rhinitis; N40.0 Benign prostatic hyperplasia without lower urinary tract symptoms; F32.A Depression, unspecified; F41.9 Anxiety disorder, unspecified; Z87.891 Personal history of nicotine dependence; Z87.442 Personal history of urinary calculi; Z88.8 Allergy status to other drugs, medicaments and biological substances; Z79.01 Long term (current) use of anticoagulants; Z91.048 Other nonmedicinal substance allergy status
CPT/HCPCS: 71045; 80048; 80053; 80061; 80162; 82607; 82728; 82746; 83540; 83550; 83735; 83880; 84100; 84443; 84484; 85025; 85027; 93005; 93306; 96365; 96366; 96375; 99291; J0153

== ENCOUNTER → 2025-02-01 16:23 | Outpatient (REF) | payer MEDICARE, OTHER, SELFPAY | LOC: RAD 16:23 | PROVIDERS: ATTENDING PHYSICIAN Internal Medicine; FAMILY PHYSICIAN Family Medicine | DX: J47.9 Bronchiectasis, uncomplicated (principal); R05.3 Chronic cough; R91.8 Other nonspecific abnormal finding of lung field; U07.1 COVID-19 | CPT/HCPCS: 71250 ==

== ENCOUNTER → 2025-02-05 11:58 | Outpatient (REF) | payer MEDICARE, OTHER, SELFPAY ==
[2025-02-05 15:47] LABS: Hematocrit 32.8 % (39.0-52.0); Hemoglobin 10.7 g/dL (13.0-18.0); Mean Corp Hgb Conc. 32.6 g/dL (33.0-37.0); Mean Corpuscular Volume 83.5 fL (80.0-94.0); Nucleated Red Blood Cells % 0 % (-); Platelet Count 141 10^3/uL (130-400); Red Cell Dist. Width 15.6 % (11.5-14.5)
[2025-02-05 16:35] LABS: Blood Urea Nitrogen 22 mg/dl (9-20); Calcium 9.2 mg/dl (8.4-10.2); Carbon Dioxide 26 mmol/L (22-30); Chloride 103 mmol/L (98-107); Glucose 78 mg/dl (70-99); Iron 99 ug/dl (49-181); Potassium 4.4 mmol/L (3.5-5.1); Sodium 137 mmol/L (135-145); eGFR > 60.00
[2025-02-05 16:44] LABS: Total Iron Binding Capacity 327 ug/dl (261-462)
[2025-02-05 16:51] LABS: Ferritin 52.7 ng/ml (17.9-464.0)
== END ==
LOC: RAD 11:58
PROVIDERS: ATTENDING PHYSICIAN Nurse Practitioner Gerontology; FAMILY PHYSICIAN Family Medicine; OTHER PHYSICIAN Internal Medicine Hematology & Oncology
DX: I50.20 Unspecified systolic (congestive) heart failure (principal); I51.7 Cardiomegaly; D61.818 Other pancytopenia
CPT/HCPCS: 36415; 80048; 82728; 82784; 83521; 83540; 83550; 84155; 84165; 85025; 86334

== ENCOUNTER → 2025-02-11 08:40 | Outpatient (REF) | payer MEDICARE, OTHER, SELFPAY | LOC: RAD 08:40 | PROVIDERS: ATTENDING PHYSICIAN Nurse Practitioner Gerontology; FAMILY PHYSICIAN Family Medicine | DX: I50.20 Unspecified systolic (congestive) heart failure (principal); I51.7 Cardiomegaly | CPT/HCPCS: 78803; A9538 ==

== ENCOUNTER → 2025-04-25 15:19 | Outpatient (REF) | payer MEDICARE, OTHER, SELFPAY ==
[2025-04-25 16:03] LABS: Hematocrit 32.0 % (39.0-52.0); Hemoglobin 10.1 g/dL (13.0-18.0); Mean Corp Hgb Conc. 31.6 g/dL (33.0-37.0); Mean Corpuscular Volume 85.6 fL (80.0-94.0); Nucleated Red Blood Cells % 0 % (-); Platelet Count 114 10^3/uL (130-400); Red Cell Dist. Width 16.6 % (11.5-14.5)
[2025-04-25 16:30] LABS: Blood Urea Nitrogen 23 mg/dl (9-20); Calcium 9.0 mg/dl (8.4-10.2); Carbon Dioxide 28 mmol/L (22-30); Chloride 100 mmol/L (98-107); Potassium 4.2 mmol/L (3.5-5.1); Sodium 138 mmol/L (135-145); eGFR > 60.00
[2025-04-25 16:41] LABS: Glucose 81 mg/dl (70-99)
== END ==
LOC: REG 15:19
PROVIDERS: ATTENDING PHYSICIAN Family Medicine
DX: Z12.11 Encounter for screening for malignant neoplasm of colon (principal); I50.32 Chronic diastolic (congestive) heart failure; D64.9 Anemia, unspecified
CPT/HCPCS: 36415; 80048; 85025